=== PATIENT | male | born 1930 | race Caucasian/White ===

== ENCOUNTER 2018-01-25 01:39 | Emergency (ER) | payer OTHER ==
[~2018-01-25] VITALS: Ht 177.8 cm; Wt 54.4 kg
[~2018-01-25 01:39] MED LIST: ASPI325; ASPI81EC PO; B-12500 MCG PO; CODACE30 PO; LISI20 PO; NITR.4SL SL; TAMS.4ER PO; TOBR.3OPSO OP
[2018-01-25 02:52] LABS: BASOPHILS ABSOLUTE AUTO 0.02 K/mm3 (0.00-0.23); BASOPHILS PERCENT AUTO 0 % (0-2); EOSINOPHILS PERCENT AUTO 1 % (0-6); Hematocrit 33.1 % (37.0-53.0); Hemoglobin 11.2 g/dL (13.5-17.5); IMMATURE GRAN ABSOLUTE AUTO 0.03 K/mm3 (0.00-0.10); IMMATURE GRAN PERCENT AUTO 0 % (0-1); LYMPHOCYTES ABSOLUTE AUTO 0.92 K/mm3 (0.84-5.20); LYMPHOCYTES PERCENT AUTO 12 % (21-46); MONOCYTES ABSOLUTE AUTO 0.94 K/mm3 (0.16-1.47); MONOCYTES PERCENT AUTO 12 % (4-13); Mean Corpuscular HGB 34.1 pg (26.0-34.0); Mean Corpuscular HGB Conc 33.8 g/dL (31.5-36.5); Mean Corpuscular Volume 101 fL (80-100); Mean Platelet Volume 10.2 fL (9.1-12.4); NEUTROPHILS ABSOLUTE AUTO 5.75 K/mm3 (1.96-9.15); NEUTROPHILS PERCENT AUTO 74 % (41-73); Platelet Count 188 K/mm3 (150-400); RDW Standard Deviation 48.1 fL (35.1-46.3); Red Blood Cell Count 3.28 M/mm3 (4.30-5.90); White Blood Cell Count 7.76 K/mm3 (4.00-11.30)
[2018-01-25 03:12] LABS: Albumin, Blood 3.5 g/dL (3.4-5.0); Albumin/Globulin Ratio 1.1 (0.8-1.8); Bilirubin, Total 0.7 mg/dL (0.1-1.0); Bun/Creatinine Ratio 14.3 (12.0-20.0); Calcium, Blood 8.5 mg/dL (8.5-10.1); Creatinine, Blood 1.26 mg/dL (0.60-1.20); Globulin, Blood 3.3 g/dL (2.2-4.0); Total Protein, Blood 6.8 g/dL (6.4-8.2); Troponin I 0.027 ng/mL (0.000-0.040)
[2018-01-25] MEDS ORDERED: Lisinopril2.5 MG (03:14)
[2018-01-25] MEDS ORDERED: Norco 5-325 Ta1 EACH PO (04:08)
[2018-01-26] MEDS ORDERED: METPRE4DP PO (13:10)
[2018-01-26] MEDS ORDERED: Ultram50 MG PO (13:10)
== END 2018-01-25 05:07 | disposition home or self-care (01) ==
LOC: ER 01:39
PROVIDERS: Emergency Medicine
DX: G89.29 Other chronic pain (principal); M54.2 Cervicalgia; I71.4 Abdominal aortic aneurysm, without rupture; I25.2 Old myocardial infarction; F17.200 Nicotine dependence, unspecified, uncomplicated; Z88.0 Allergy status to penicillin; Z88.2 Allergy status to sulfonamides; Z79.899 Other long term (current) drug therapy
CPT/HCPCS: 36415; 71046; 71275; 74175; 80053; 82550; 84484; 85025; 93005; 93010; 96374; 99284; J1885; Q9967

== ENCOUNTER 2018-01-26 10:31 | Emergency (ER) | payer OTHER ==
[~2018-01-26] VITALS: Ht 172.7 cm; Wt 61.2 kg
[~2018-01-26 10:31] MED LIST changes: +Lisinopril2.5 MG; +Norco 5-325 Ta1 EACH PO
[2018-01-26] MEDS ORDERED: METPRE4DP PO (13:10)
[2018-01-26] MEDS ORDERED: Ultram50 MG PO (13:10)
== END 2018-01-26 13:28 | disposition home or self-care (01) ==
LOC: ER 10:31
DX: M54.12 Radiculopathy, cervical region (principal); F17.200 Nicotine dependence, unspecified, uncomplicated; Z88.0 Allergy status to penicillin; Z88.2 Allergy status to sulfonamides; Z79.899 Other long term (current) drug therapy; Z79.891 Long term (current) use of opiate analgesic
CPT/HCPCS: 36415; 72125; 93005; 93010; 96374; 96375; 99284; J1100; J1170; J1885; J2405

== ENCOUNTER 2018-12-14 19:22 | Inpatient (IN) | payer OTHER ==
[~2018-12-14] VITALS: Ht 177.8 cm; Wt 59.0 kg
[~2018-12-14 19:22] MED LIST changes: +METPRE4DP PO; +Ultram50 MG PO
[2018-12-14 19:55] LABS: Chloride (POC) 102 mmol/L (98-108); Creatinine (POC) 1.2 mg/dL (0.8-1.3); Glucose (ISTAT POC) 115 mg/dL (70-99); Hemoglobin (POC) 10.9 g/dL (13.5-17.5); Potassium (POC) 3.5 mmol/L (3.5-5.5); Sodium (POC) 141 mmol/L (135-148); Total CO2 (POC) 24 mmol/L (21-32)
[2018-12-14 19:57] LABS: BASOPHILS ABSOLUTE AUTO 0.02 K/mm3 (0.00-0.23); BASOPHILS PERCENT AUTO 0 % (0-2); EOSINOPHILS PERCENT AUTO 3 % (0-6); Hematocrit 33.2 % (37.0-53.0); Hemoglobin 11.1 g/dL (13.5-17.5); IMMATURE GRAN ABSOLUTE AUTO 0.02 K/mm3 (0.00-0.10); IMMATURE GRAN PERCENT AUTO 0 % (0-1); LYMPHOCYTES ABSOLUTE AUTO 0.98 K/mm3 (0.84-5.20); LYMPHOCYTES PERCENT AUTO 13 % (21-46); MONOCYTES ABSOLUTE AUTO 0.95 K/mm3 (0.16-1.47); MONOCYTES PERCENT AUTO 13 % (4-13); Mean Corpuscular HGB 35.2 pg (26.0-34.0); Mean Corpuscular HGB Conc 33.4 g/dL (31.5-36.5); Mean Corpuscular Volume 105 fL (80-100); Mean Platelet Volume 9.9 fL (9.1-12.4); NEUTROPHILS PERCENT AUTO 71 % (41-73); Platelet Count 231 K/mm3 (150-400); RDW Coefficient Variation 13.6 % (11.7-14.2); RDW Standard Deviation 52.5 fL (35.1-46.3); Red Blood Cell Count 3.15 M/mm3 (4.30-5.90); White Blood Cell Count 7.37 K/mm3 (4.00-11.30)
[2018-12-14 20:28] LABS: Alanine Aminotransfer (ALT/SGP 14 U/L (12-78); Albumin, Blood 3.4 g/dL (3.4-5.0); Albumin/Globulin Ratio 1.2 (0.8-1.8); Alk Phos 84 U/L (50-136); Anion Gap 6 mmol/L (6-16); Aspartate Aminotrans (AST/SGOT 16 U/L (12-37); Bilirubin, Total 0.9 mg/dL (0.1-1.0); Blood Urea Nitrogen 12 mg/dL (8-24); CO2, Blood 27 mmol/L (21-32); Calcium, Blood 8.4 mg/dL (8.5-10.1); Chloride, Blood 105 mmol/L (98-108); Globulin, Blood 2.9 g/dL (2.2-4.0); Glomerular Filtration Rate >60 (60-); Glucose, Blood 114 mg/dL (70-99); Potassium, Blood 3.8 mmol/L (3.5-5.5); Sodium, Blood 138 mmol/L (136-145); Total Protein, Blood 6.3 g/dL (6.4-8.2); Troponin I 0.038 ng/mL (0.000-0.040)
--- NOTE | 2018-12-15 02:19 | NUR ---
PT T/F'D TO ROOM 351 AT 0210. REPORT RECIEVED FROM SEAMUS VILLA RN. THIS RN AGREES TO PREVIOUS ASSESSMENT FINDINGS. RESPS ARE E/U ON RA. HE'S CONFUSED TO EVENT/TIME AND PLACE AND CONT'S IRRITABLE, AGGITATED AND FRUSTRATED W/STAFF BUT ISN'T MAKING ATTEMPTS OOB AND SEEMS TO BE CALMER AFTER HALDOL. REORIENTATION PROVIDED AND EXPLAINED ADMISSION AND RATIONALE FOR BEING IN HOSPITAL. PT REPLIED "OH FINE JUST LEAVE ME ALONE". PT ASSISTED W/URINAL FOR 150 MLS CONCENTRATED URINE AND POSITIONED FOR COMFORT. CALL LIGHT IN REACH. BED ALARM ON AND HE REMAINS IN BILAT WRIST RESTRAINTS AND TEMO VEST.
--- NOTE | 2018-12-15 02:35 | NUR ---
*LATE ENTRY* PT UP TO FLOOR @ 2340. PT VERY CONFUSED OF MEDICAL HX, UNABLE TO OBTAIN MUCH INFORMATION FROM HIM, HE STATES HE HAS A "BROKEN HAND" & IS HERE FOR A "HEART ATTACK." PT WAS PLEASENT & COOPERATIVE WHEN HE FIRST ARRIVED TO FLOOR. AT 0120 LOCAL INTERMODAL TRUCK DRIVER CALLED ME INTO PT ROOM & PT HAD PULLED LEFT HAND IV OUT & BLOOD WAS ALL OVER BED, PT & FLOOR. WHEN I ASKED PT WHY HE PULLED THE IV OUT HE STATED, "I DIDN'T DO THAT, I DON'T KNOW WHO DID." ENCOURAGE PT TO SIT IN BED WHILE ME & LOCAL INTERMODAL TRUCK DRIVER CLEANED UP BLOOD. PT GOT AGITATED, STARTED YELLING THREATENING COMMENTS AT STAFF & EVEN TRIED HITTING MYSELF. INFORMED DR. APNDA OF CHANGE IN PT & INCREASED CONFUSION/AGITATION @0130. HE ORDERED RESTRAINTS & 1X DOSE OF HALDOL TO HELP CALM PT DOWN. SECURITY WAS CALLED & ARRIVED AROUND 0135 TO ASSIST PT IN WRIST & VEST RESTRAINTS, IT TOOK 3 SECURITY STAFF TO ASSIST PT IN RESTRAINTS. KSENIA Mello, SEEMA Shipley & BRYAN Hunt, RN'S ALL ASSISTED W/RESTRAINTS & PT CARE & WERE WITNESSES TO PT BEHAVIOR. PT WAS MOVED TO THE SCU @ 0200.
--- NOTE | 2018-12-15 05:30 | NUR ---
PT VERY RESTLESS, THREATENING STAFF, TEARING AT TEMO AND YANKING AT BILAT SOFT WRIST RESTRAINTS. HE'S CONFUSED, HALLUCINATING, NONSENSICAL AND IS ORIENTED ONLY TO NAME/FAMILY'S NAMES. PT CONT'S TO BE HARM TO SELF DESPITE RESTRAINTS AND DOESN'T CALM W/REASSURANCE, EDUCATION OR REORIENTATION. NOTIFIED AND AN ADDITIONAL DOSE OF HALDOL 10MG IM X1 RX'D. WILL GIVE MED WHEN AVAILABLE FROM PHARMACY.
--- NOTE | 2018-12-15 05:55 | NUR ---
SUMMARY: PT WAS AN ER ADMIT TO ROOM 335 TONIGHT AND WAS MOVED TO SCU FOR CONFUSION, AGGITATION, FALL RISK, THREATENING STAFF, IMPULSIVITY, PULLING AT LINES AND INABILITY TO FOLLOW INTRUCTIONS. HE REMAINS COMPLETELY NONSENSICAL, IS HALLUCINATING AND CONT'S ANXIOUS AND HARM TO SELF. HE HAS BEEN YANKING AT HIS BILAT WRIST RESTRAINTS AND TEARING AT HIS TEMO IN ATTEMPT TO GET OOB. BED ALARM IS ON AT ALL TIMES. REORIENTATION, EDUCATION AND ATTEMPTS AT EXPLAINING HOSPITALISATION HAVE BEEN UNSUCCESSFUL. HE RECIEVED X1 DOSE OF HALDOL PRIOR TO T/F TO SCU FOR VERY LITTLE EFFECT. HE HAS NOW RECIEVED A 2ND DOSE OF HALDOL 10MG IM AND WE ARE AWAITING EFFECT, SO FAR HE HASN'T CALMED AT ALL. HE'S ADMITTED FOR PE AND RESPS ARE E/U ON RA W/SPO2 WNL AND CLEAR BUT DIMINISHED LS. LR INFUSING AT 200 ML/HR. MED REC NEEDS COMPLETED AND HEALTH HX NEEDS REVISED SINCE PT IS UNABLE TO PROVIDE DETAILS. PT'S DAUGHTER IS DUE TO ARRIVE FROM [place] [employer] TODAY SO WOULD BE GOOD RESOURCE. CODE STATUS SHOULD ASLO BE CLARIFIED BUT IS CURRENTLY DNR. NO ACUTE CHANGES, VSS/AFEBRILE. WILL MONITOR AND REPORT TO DAY RN.
[2018-12-15 16:26] LABS: International Normalized Ratio 1.06; Prothrombin Time Results 11.2 Sec (9.7-11.5)
--- NOTE | 2018-12-15 19:14 | NUR ---
NO ACUTE CHANGES NOTED THIS SHIFT. PT HAS REMAINED CONFUSED AND IMPULSIVE T/O THE SHIFT, VERY WEAK AND SHAKEY GAIT, NON-DIRECTABLE MOST TIMES. TEMO VEST AND SOFT WRIST RESTRAINTS ARE IN PLACE. FAMILY IN AND OUT OF THE ROOM T/O THE DAY AND PT RECOGNIZED AND SPOKE WITH FAMILY. WILL CONTINUE TO MONITOR AND REPORT TO ONCOMING RN.
[2018-12-16 05:08] LABS: BASOPHILS ABSOLUTE AUTO 0.02 K/mm3 (0.00-0.23); BASOPHILS PERCENT AUTO 0 % (0-2); EOSINOPHILS ABSOLUTE AUTO 0.03 K/mm3 (0.00-0.68); EOSINOPHILS PERCENT AUTO 0 % (0-6); Hematocrit 32.3 % (37.0-53.0); Hemoglobin 10.8 g/dL (13.5-17.5); IMMATURE GRAN ABSOLUTE AUTO 0.03 K/mm3 (0.00-0.10); IMMATURE GRAN PERCENT AUTO 0 % (0-1); LYMPHOCYTES ABSOLUTE AUTO 0.88 K/mm3 (0.84-5.20); LYMPHOCYTES PERCENT AUTO 11 % (21-46); MONOCYTES ABSOLUTE AUTO 0.97 K/mm3 (0.16-1.47); MONOCYTES PERCENT AUTO 12 % (4-13); Mean Corpuscular HGB 35.2 pg (26.0-34.0); Mean Corpuscular HGB Conc 33.4 g/dL (31.5-36.5); Mean Corpuscular Volume 105 fL (80-100); Mean Platelet Volume 9.8 fL (9.1-12.4); NEUTROPHILS ABSOLUTE AUTO 6.34 K/mm3 (1.96-9.15); NEUTROPHILS PERCENT AUTO 77 % (41-73); Platelet Count 201 K/mm3 (150-400); RDW Coefficient Variation 13.3 % (11.7-14.2); Red Blood Cell Count 3.07 M/mm3 (4.30-5.90); White Blood Cell Count 8.27 K/mm3 (4.00-11.30)
--- NOTE | 2018-12-16 05:39 | NUR ---
VSS, ALERT, CONFUSED, HALLUCINATES AT TIMES, COMBATIVE, VEST/BILAT WRIST RESTRAINTS, 20G R FA, CIWA. PMHX: ETOH ABUSE, HTN, AAA, BPH. INCONT, THREATENS STAFF AT TIMES, CURSING, LOUD, TRYING TO WIGGLE OUT OF RESTRAINTS, VERY UNSTEADY GAIT, HIGH FALL RISK, BILATE PE
[2018-12-16 05:46] LABS: Anion Gap 8 mmol/L (6-16); Blood Urea Nitrogen 11 mg/dL (8-24); Bun/Creatinine Ratio 10.8 (12.0-20.0); CO2, Blood 26 mmol/L (21-32); Calcium, Blood 8.2 mg/dL (8.5-10.1); Chloride, Blood 110 mmol/L (98-108); Creatinine, Blood 1.02 mg/dL (0.60-1.20); Glomerular Filtration Rate >60 (60-); Glucose, Blood 103 mg/dL (70-99); Potassium, Blood 3.7 mmol/L (3.5-5.5); Sodium, Blood 144 mmol/L (136-145)
--- NOTE | 2018-12-16 11:32 | NUR ---
PT NOT EATING WELL, REFUSED BREAKFAST, TOOK ONLY A COUPLE OF BITES OF APPLESAUCE WITH MEDICATIONS BUT REFUSED EVERYTHING ELSE. TOOK A SWALLOW OF MOUNTAIN DEW AND SEVERAL SMALL SIPS OF WATER. WILL CONTINUE TO MONITOR.
--- NOTE | 2018-12-16 18:15 | NUR ---
PT VERY AGITATED, GIVEN 2 MG IV ATIVAN AT 172, ATTEMPTED PO LIBRIUM AT THAT TIME, PT REFUSED. ATTEMPTED PO LIBRIUM AGAIN AT 1809, PT REFUSED AND SPIT PILL OUT ONTO FLOOR.
--- NOTE | 2018-12-16 19:35 | NUR ---
PT REMAINS IN RESTRAINTS AND CIWAS BEING DONE. APPEARS TO BE EXPERIENCING SOME VISUAL HALLUCINATIONS THIS AFTERNOON. REFUSED TO TAKE PO MEDS THIS AFTERNOON. WILL CONTINUE TO MONITOR AND REPORT TO ONCOMING RN.
[2018-12-17 05:17] LABS: BASOPHILS ABSOLUTE AUTO 0.01 K/mm3 (0.00-0.23); BASOPHILS PERCENT AUTO 0 % (0-2); EOSINOPHILS ABSOLUTE AUTO 0.08 K/mm3 (0.00-0.68); EOSINOPHILS PERCENT AUTO 1 % (0-6); Hematocrit 31.3 % (37.0-53.0); Hemoglobin 10.8 g/dL (13.5-17.5); IMMATURE GRAN ABSOLUTE AUTO 0.02 K/mm3 (0.00-0.10); IMMATURE GRAN PERCENT AUTO 0 % (0-1); LYMPHOCYTES PERCENT AUTO 7 % (21-46); MONOCYTES ABSOLUTE AUTO 1.09 K/mm3 (0.16-1.47); MONOCYTES PERCENT AUTO 12 % (4-13); Mean Corpuscular HGB 35.8 pg (26.0-34.0); Mean Corpuscular HGB Conc 34.5 g/dL (31.5-36.5); Mean Corpuscular Volume 104 fL (80-100); Mean Platelet Volume 10.1 fL (9.1-12.4); NEUTROPHILS PERCENT AUTO 80 % (41-73); Platelet Count 212 K/mm3 (150-400); RDW Coefficient Variation 13.4 % (11.7-14.2); RDW Standard Deviation 50.7 fL (35.1-46.3); Red Blood Cell Count 3.02 M/mm3 (4.30-5.90)
[2018-12-17 05:43] LABS: Albumin, Blood 3.1 g/dL (3.4-5.0); Anion Gap 8 mmol/L (6-16); Blood Urea Nitrogen 10 mg/dL (8-24); Bun/Creatinine Ratio 9.4 (12.0-20.0); CO2, Blood 26 mmol/L (21-32); Calcium, Blood 8.3 mg/dL (8.5-10.1); Chloride, Blood 112 mmol/L (98-108); Creatinine, Blood 1.06 mg/dL (0.60-1.20); Glomerular Filtration Rate >60 (60-); Glucose, Blood 105 mg/dL (70-99); Potassium, Blood 3.3 mmol/L (3.5-5.5); Sodium, Blood 146 mmol/L (136-145)
--- NOTE | 2018-12-17 05:58 | NUR ---
NOC SHIFT SUMMARY. THIS PT HAS BEEN LARGELY SLEEPING THIS SHIFT. WAKES TO VOICE, COOPERATIVE WITH CARE. DUE TO SLEEPINESS UNABLEL TO TAKE ORAL MEDICATION DUE TO APIRATOIN RISK. 1 CIWA OF 10 DUE TO CONFUSION, TREMORS, AND AGITATION. TREATED WITH 1MG ATIVAN WHICH RELIEVED S/S. PRODUCED TWO WET DIAPERS. SLEEPING RESTFULLY AT THIS TIME. WILL CONTINUE TO MONITOR.
--- NOTE | 2018-12-17 07:45 | NUR ---
LATE ENTRY FOR 12/17/18 OBTAINED ORDER FOR VEST AND WRIST RESTRAINTS AND CHANGED TIME ON FORMS IN PROCESS INTERVENTIONS BUT FORGOT TO PLACE ORDER IN ORDERS FOR 12/17/18 AT 0745.
--- NOTE | 2018-12-17 19:24 | NUR ---
SHIFT SUMMARY PT VERY DROWSY THIS MORNING AND REMAINED SO TIL MID AFTERNOON TODAY. A.M. MEDS HELD DUE TO DROWSINESS BUT GIVEN WHEN MORE AWAKE AND SITTING UP WITH O.T. WRIST RESTRAINTS REMOVED THIS AFTERNOON DUE TO INCREASED AWARENESS OF SURROUNDINGS. VERY WEAK ON HIS FEET WITH ASSIST AND HAD DIFFICULTY GETTING FEET IN THE CORRECT PLACE WHEN STANDING. SAT ON SIDE OF BED TO EAT SUPPER AND ABLE TO FEED HIMSELF BUT WAS WEAK. DAUGHTERS AT BEDSIDE. ATTEMPTED TO LEAVE WITH DAUGHTERS SAYING HE WAS GOOD AND READY TO LEAVE WITH THEM. PT REQUIRE ABOUT 20 MINUTES OF REDIRECTION TALK AND DAUGHTERS LEAVING ROOM FOR HIM TO LAY BACK DOWN IN BED. WAS INSISTING ON GOING OUT TO SMOKE BUT WAS INSTRUCTED THAT NO SMOKING ALLOWED IN HOSPITAL AND HE HAD A NICOTINE PATCH ON. LAYED DOWN AND FELL BACK ASLEEP.
--- NOTE | 2018-12-17 21:50 | NUR ---
PT DAUGHTER CALL OBTAINED PERMISSION FROM PT TO SPEAK WITH GRAYSON TITUS. CALLED AND SPOKE WITH HER AND GAVE STATUS UPDATE. SHE STATES SHE AND HER SISTER WILL COME BACKIN THE MORNING TO VISIT.
[2018-12-18 05:39] LABS: Anion Gap 9 mmol/L (6-16); Blood Urea Nitrogen 12 mg/dL (8-24); Bun/Creatinine Ratio 9.2 (12.0-20.0); CO2, Blood 26 mmol/L (21-32); Calcium, Blood 8.1 mg/dL (8.5-10.1); Chloride, Blood 108 mmol/L (98-108); Glomerular Filtration Rate 56 (60-); Glucose, Blood 106 mg/dL (70-99); Phosphorus, Blood 2.2 mg/dL (2.5-4.9); Sodium, Blood 143 mmol/L (136-145)
--- NOTE | 2018-12-18 07:22 | NUR ---
NOC SHIFT SUMMARY THIS PATIENT WAS SLEPT THROUGH MOST OF THE NIGHT, THOUGH WHEN HE HAS BEEN AWAKE HE HAS BEEN CONFUSED/NONCOMPLIANT AND DOES NOT KNOW WHERE HE IS. HE IS ORIENTED TO SELF. THIS MORING AROUND 0615 HE WAS FOUND SITTING UP IN BED TRYING TO LEAVE, HE HAD PULLED OUT HIS IV AND WAS BECOMING COMBATIVE. IV WAS REPLACED IN L HAND AND 2MG ATIVAN ADMINISTERED. PT NOW SLEEPING RESTFULLY. WILL CONTINUE TO MONITOR.
--- NOTE | 2018-12-18 11:46 | NUR ---
PT VERY DROWSY. ATTEMPTS TO TALK BUT DOESN'T OPEN HIS EYES AND IS HARD TO UNDERSTAND. MOUTH BREATHING WITH MOUTH APPEARING DRY. ORAL CARE GIVEN. SPONGE BATH GIVEN AND PT DID BECOME AGGRESSIVE ATTEMPTING TO HIT AT STAFF AND YELLING AT THEM. QUIETED DOWN AFTER CARE. VEST RESTRAINT REMAINS ON DUE TO PT HX OF BEING IMPULSIVE AND ATTEMPTING TO CLIMB OOB WHEN NOT MEDICATED.
--- NOTE | 2018-12-18 19:41 | NUR ---
SHIFT SUMMARY PT WOKE UP APPROX 1400 AND WAS ATTEMPTING TO GET OUT OF BED. WANTED WINDOW OPENED AND NEEDED TO BE TOLD THE WINDOW DON'T OPEN SEVERAL TIMES BEFORE P.T. CAME IN AND STARTED WORKING WITH PT. PT WAS CALM AND ABLE TO CARRY A SHORT CONVERSATION. ORIENTED X1 ONLY. SAT IN CHAIR MOST OF AFTERNOON AND FED HIMSELF A LATE LUNCH. PLATE GUARD PLACED TO EASE EATING DIFFICULTIES. DAUGHTERS TO ROOM APPROX 1630. PT STARTED BECOMING MORE AGITATED AND WAS GIVEN 1MG OF ATIVAN. LESS AGITATED AFTERWARDS BUT DIDN'T WANT TO LAY DOWN AND KEPT WANTING TO GO OUT IN HALLWAY THINKING IT WAS THE KITCHEN. RECLINED PT IN CHAIR AND ENCOURAGED DAUGHTERS TO TAKE HIM FOR A RIDE WHICH PT SEEMED TO ENJOY BUT KEPT LOOKING FOR THE KITCHEN ANYWAY. SUPPER OFFERED AND HE ATE A SMALL AMOUNT. ASSISTED BACK TO BED AND HE FELL ASLEEP
[2018-12-19 05:30] LABS: Hematocrit 30.8 % (37.0-53.0); Hemoglobin 10.4 g/dL (13.5-17.5); Mean Corpuscular HGB 34.8 pg (26.0-34.0); Mean Corpuscular HGB Conc 33.8 g/dL (31.5-36.5); Mean Corpuscular Volume 103 fL (80-100); Mean Platelet Volume 10.3 fL (9.1-12.4); Platelet Count 205 K/mm3 (150-400); RDW Coefficient Variation 13.5 % (11.7-14.2); RDW Standard Deviation 50.9 fL (35.1-46.3); Red Blood Cell Count 2.99 M/mm3 (4.30-5.90); White Blood Cell Count 7.73 K/mm3 (4.00-11.30)
--- NOTE | 2018-12-19 05:38 | NUR ---
NOC SHIFT SUMMARY PT HAS BEEN LARGELY COMPLIANT WITH CARE, THOUGH IS STILL ATTEMPTING TO GET OUT OF BED. HAS BEEN DISORIENTED AND DOES NOT KNOW WHERE HE IS. WAS ABLE TO TAKE ORAL MEDICATIONS. RESISTS ATTENDS CHANGES. SPOKE WITH PT'S DAUGHTER GRAYSON AND SHE STATES THAT SHE AND HER TWO SISTERS WILL BE VISITING PT TODAY 12/19/2018 AROUND 1030 AND WOULD LIKE TO SPEAK WITH PHYSICIAN AT THAT TIME. PT CURRENTLY SLEEPING RESTFULLY. WILL CONTINUE TO MONITOR.
[2018-12-19 06:02] LABS: Albumin, Blood 2.9 g/dL (3.4-5.0); Anion Gap 8 mmol/L (6-16); Blood Urea Nitrogen 17 mg/dL (8-24); Bun/Creatinine Ratio 14.3 (12.0-20.0); CO2, Blood 26 mmol/L (21-32); Calcium, Blood 8.2 mg/dL (8.5-10.1); Chloride, Blood 109 mmol/L (98-108); Creatinine, Blood 1.19 mg/dL (0.60-1.20); Glomerular Filtration Rate >60 (60-); Glucose, Blood 109 mg/dL (70-99); Phosphorus, Blood 3.9 mg/dL (2.5-4.9); Potassium, Blood 3.9 mmol/L (3.5-5.5); Sodium, Blood 143 mmol/L (136-145)
--- NOTE | 2018-12-19 19:06 | NUR ---
SHIFT SUMMARY: NO ACUTE CHANGES TO REPORT THIS SHIFT. PT DROWSY; ORIENTED TO SELF. TEMO VEST IN PLACE R/T CONFUSION, WEAKNESS; ATTEMPTS TO LEAVE. PREVENTATIVE MEPILEX TO COCCYX; PT INCONTINENT. DEMENTIA PERSISTING c ETOH WITHDRAWAL. REPORT GIVEN TO ONCOMING RN.
--- NOTE | 2018-12-20 02:52 | NUR ---
PT WAS ABLE TO KICK HIS TABLE OVER WHILE TRYING TO GET OUT OF BED. PT DENTURES FELL ON FLOOR AND HIS LOWER DENTURE BROKE. PT ALSO PULLED OUT HIS IV. NEW SITE WAS ESTABLISHED. PT WAS EASILY REDIRECTED.
--- NOTE | 2018-12-20 03:52 | NUR ---
SHIFT SUMMARY PT BEGAN SHIFT SLEEPING SOUNDLY. HIS DAUGHTER CALLED AND ASKED FOR A UPDATE. LATER INTO SHIFT PT BEGAN TO BECOME ANXIOUS AND AGITATED. PT IS CONFUSED AND PT TRIED TO GET OUT OF BED DESPITE TEMO VEST. PT KNOCKED OVER ITEMS OFF HIS TABLE WITH HIS FEET. HIS BOTTOM DENTURES BROKE AFTER FALLING TO FLOOR. PT WAS GIVEN 1 MG ATIVAN AND IS CURRENTLY SLEEPING. BED ALARM IS ARMED AND CALL LIGHT IN REACH.
--- NOTE | 2018-12-20 18:11 | NUR ---
SHIFT SUMMARY: NO ACUTE CHANGES TO REPORT THIS SHIFT. PT CONFUSED; IRRITABLE; MULTIPLE ATTEMPTS TO GET OOB/ OO CHAIR; TEMO VEST REMAINS IN PLACE. NO S/SX OF PAIN. PT UP IN CHAIR FOR MEALS. PREVENTATIVE MEPILEX TO COCCYX. PT INCONTINENT OF BLADDER; ATTENDS IN PLACE. ALCOHOL-INDUCED PERSISTENT DEMENTIA. WCTM.
--- NOTE | 2018-12-20 19:23 | NUR ---
PT DAUGHTER GRAYSON CALLED AND ASKED FOR A UPDATE. DAUGHTER INFORMED THAT PT IS CURRENTLY SLEEPING AND IN NO DISTRESS. DAUGHTER WAS INFORMED THAT IF ANY SIGNIFICANT CHANGES OCCUR SHE WILL BE CALLED. SHE STATED TO CALL ANYTIME NEEDED.
--- NOTE | 2018-12-21 00:42 | NUR ---
PT PULLED OUT HIS IV. NEW SITE ESTABLISHED. PT IS MORE REDIRECTABLE THIS SHIFT.
--- NOTE | 2018-12-21 03:22 | NUR ---
PT AGITATED AND TRYING TO GET OUT OF BED. PT STATES HE NEEDS TO GO TO BANK SO HE CAN BUY CIGERETTES AND WHISKEY. PT MEDICATED PER EMAR.
--- NOTE | 2018-12-21 04:17 | NUR ---
SHIFT SUMMARY PT WAS RESTING COMFORTABLY FOR MOST OF THE SHIFT. PT DID WAKE UP AND BECAME AGITATED. PT ATTEMPTED NUMEROUS TIMES TO TRY AND GET OUT OF BED. PT PULLED OUT HIS IV ALSO. PT RECIEVED ATIVAN PER EMAR FOR AGITATION. PT IS CURRENTLY STILL TRYING TO GET OUT OF BED. PT IS STILL AGITATED AND CONFUSED. PT BED ALARM ARMED AND CALL LIGHT IN REACH.
--- NOTE | 2018-12-21 18:39 | NUR ---
SHIFT SUMMARY: NO ACUTE CHANGES TO REPORT THIS SHIFT. PT CONFUSED; TEMO VEST IN PLACE R/T WEAKNESS, CONFUSION, ATTEMPTS TO LEAVE. VERY WEAK; 2-ASSIST TO CHAIR. ASPIRATION PRECAUTIONS; FEEDER; [facility] SOFT DIET. ALCOHOL-INDUCED PERSISTENT DEMENTIA; UNCLEAR BASELINE. WCTM.
--- NOTE | 2018-12-22 03:25 | NUR ---
SHIFT SUMMARY PT IS DOING MUCH BETTER THIS SHIFT. PT WAS MORE COHERENT TONIGHT. PT SPEECH WAS MORE CLEAR. PT WAS ABLE TO RECALL MY NAME. PT WAS SITTING IN RECLINER WATCHING TV FOR FIRST PART OF SHIFT. PT WAS ABLE TO USE CALL LIGHT TO GET ASSISTANCE WITH URINAL. PT DID WAKE UP CONFUSED AND WANTING TO LEAVE. PT TRIED TO GET OUT OF BED MULTIPLE TIMES. PT DID TIRE AND FELL BACK TO SLEEP. PT IS CURRENTLY SLEEPING AND BREATHING EASY. TEMO VEST ON AND BED ALARM ARMED.
--- NOTE | 2018-12-22 12:47 | NUR ---
Pierre provided permission for Shagufta Funmilayo to provide care on 12/22/18 for the 1300 to 1830 pm shift.
--- NOTE | 2018-12-22 18:15 | NUR ---
SHIFT SUMMARY PT AXO TO SELF AND SOME FAMILY MEMBERS. PT AGGITATED AND IN TEMO, MEDICATED PER EMAR. PT NOT SAFE TO BE OUT OF TEMO THIS SHIFT. PT UP TO CHAIR FOR MOST OF THE DAY. VSS, IV PATENT AND SALINE LOCKED. NO ACUTE CHANGES THIS SHIFT THOUGH PATIENT IS EAGER TO "GO HOME." AT ABOUT 1300 FAMILY MEMBERS STATED CONCERN OVER A PT BELONGING THAT THEY CLAIMED WAS MISSING. NURSE CALLED SECURITY TO SEE IF THEY HAD IT, THEY DID NOT. THE ITEM WAS NOT IT ER [id number] EITHER. FAMILY MEMBERS UPSET. PROCEDURE NURSE SHAWN SLATER RN SPOKE WITH FAMILY AND GOT PT ADVOCATE INVOLVED.
--- NOTE | 2018-12-23 06:29 | NUR ---
still in restraints, remains confused and determined to leave dispite 's orders, knife in locked drawer, room air, saline locked, able to make needs known, denies pain, will continue to monitor and treat until provide handoff to day shift staff
--- NOTE | 2018-12-23 17:15 | NUR ---
SHIFT SUMMARY NO CHANGES IN ASSESSMENT AT THIS TIME. VSS. PT CONTINUES TO ASK FOR SOMEONE TO TAKE HIM TO THE BANK SO THAT HE CAN GET CRUZ AND BUY WISKEY. PT REORIENTED NEEDED. PT BECOMES AGITATED WHEN TOLD HE CANNOT LEAVE AND THAT HE IS IN THE HOSPITAL. PT CURRENTLY IN TEMO VEST & UP IN CHAIR. PT CONTINUES TO ASK FOR SOMEONE TO HELP HIM GET OUT OF THE CHAIR. WILL CONTINUE TO MONITOR UNTIL TURNOVER IS COMPLETE.
--- NOTE | 2018-12-24 01:13 | NUR ---
SLID OUT OF TEMO AND ON TO FLOOR, STATED HE WAS GOING HOME AND HIS CHUY WOULD PICK HIM UP. DENIED PAIN, NO S/SX OF BRUISING OR ABRASIONS, ASSISTED UP ON FEET, ALLOWED PT TO TELL WHAT HE WAS GOING TO DO WHILE CHANGED DEPENDS, WHEN DONE HE WAS TIRED AND AGREED TO CLIMB BACK INTO BED WITH THE TEMO ON, CURRENTLY RESTING QUIETLY WITH FREQUENT CHECKS, WILL CONTINUE TO MONITOR AND TREAT APPROPRIATE
--- NOTE | 2018-12-24 06:46 | NUR ---
has been resting in bed with duy on, states his back hurts but declined medication, repositioned and placed pillows for comfort, saline locked and wrapped to protect, room air, call light in reach, will continue to monitor and treat until provide sbar report to returning day staff.
--- NOTE | 2018-12-24 10:10 | NUR ---
PT INCREASINGLY AGITATED. PT FOUND IN ROOM TRYING TO CUT HIS SHEET WITH A BUTTER KNIFE. PT CURSING AT STAFF & AND THREATENING STAFF. PT REMOVED CLOTHES AND TEMO VEST. PT BEGAN TO GET OUT OF BED AND WALK TOWARDS BATHROOM. AT THIS POINT PT BEGAN TO USE HIS WALKER A WEAPON AND TRIED TO THROWN IT AT STAFF. PT SPIT OUT MEDICATION THIS MORNING AND THREW HIS BREAKFAST WHEN HE BECAME AGITATED. PROVIDER NOTIFIED OF PT BEHAVIOR & RESTRAINTS REAPPLIED. PT CURRENTLY UP IN CHAIR. TEMO VEST ON. CALL LIGHT IN REACH.
--- NOTE | 2018-12-24 12:44 | NUR ---
PT CONTINUES TO REFUSE MEDICATION PT HAS CALMED DOWN SINCE THIS MORNING. HOWEVER, PT CONTINIUES TO REFUSE ORAL MEDICATIONS.
[2018-12-24] MEDS ORDERED: ELIQUIS5 MG PO (13:17)
[2018-12-24] MEDS ORDERED: LORA.5 PO (13:19)
[2018-12-24] MEDS ORDERED: ONE DAILY ESS400 MCG PO (13:20)
--- NOTE | 2018-12-24 13:49 | NUR ---
PT INCREASE IN AGITATION PT HAS INCREASED IN AGITATION. PT THINKS THIS IS HIS HOME AND STATES HE IS NOT GOING ANYWHERE. PT REPEATEDLY TRYING TO GET OUT OF THE CHIAR. AND IS PULLING AT CORDS NEAR HIM. PT THREW BLANKET AT RN. PT IN TEMO VEST & REORIENTED.
--- NOTE | 2018-12-24 14:58 | NUR ---
PT DISCHARGED PT DISCHARGED AT 1445. PT IN STABLE CONDITION WIHT VSS. PT COOPERATIVE WITH DISCHARGE AND GETTING DRESSED/INTO WHEELCHAIR. HARD SCRIPT GIVEN TO DAUGHTER TO BE FILLED. BELONGINGS GIVEN TO DAUGHTER. PT APARICIO OUT & TO BE TRANSPORTED BY [facility]. EDUCATION SENT WITH PT. IV REMOVED & INTACT. NO OTHER CHANGES IN ASSESSMENT AT THIS TIME.
== END 2018-12-24 14:55 | disposition home or self-care (01) | DRG 175 ==
LOC: ER 19:22 → MEDS 22:50 → ENPENDDIS 12-24 13:04 → MEDS 12-24 14:55
PROVIDERS: Internal Medicine; Physician Assistant; ADMIT Hospitalist
DX: I26.99 Other pulmonary embolism without acute cor pulmonale (principal); J96.01 Acute respiratory failure with hypoxia; F10.231 Alcohol dependence with withdrawal delirium; G93.49 Other encephalopathy; E87.1 Hypo-osmolality and hyponatremia; F10.27 Alcohol dependence with alcohol-induced persisting dementia; I25.10 Atherosclerotic heart disease of native coronary artery without angina pectoris; I25.2 Old myocardial infarction; I10 Essential (primary) hypertension; N40.0 Benign prostatic hyperplasia without lower urinary tract symptoms; F17.210 Nicotine dependence, cigarettes, uncomplicated; I71.4 Abdominal aortic aneurysm, without rupture; E87.6 Hypokalemia; I73.9 Peripheral vascular disease, unspecified; R45.1 Restlessness and agitation
CPT/HCPCS: 36415; 71275; 74175; 80047; 80048; 80053; 80069; 82607; 82746; 83690; 83735; 83880; 84484; 85014; 85025; 85027; 85610; 85730; 92610; 93005; 93010; 96360; 96361; 97110; 97116; 97162; 97166; 97530; 97535; 99285-25; J1630; J1650; J2060; J3411; J3475; J3480; J7042; J7050; J7060; J7070; J7120; Q9967